=== PATIENT | female | born 1950 | race Caucasian/White ===

== ENCOUNTER → 2017-04-10 | Outpatient (CLI) | payer OTHER ==
[~2017-04-10] MED LIST: ASPEC81 PO; CHOL2000 PO; CYAN10005 SL; LEVO100T7 PO; LEVO88TA PO; LPT40 PO; SIMV10TA5 PO; SULF800T23 PO
[2017-04-10 09:56] LABS: ALT/SGPT 48 U/L (12-78); BLOOD UREA NITROGEN 16 mg/dl (7-18); BUN/CREATININE RATIO 17.2 (10-20); CARBON DIOXIDE 27 mmol/L (21-32); CHLORIDE 107 mmol/L (98-107); CHOLESTEROL 176 mg/dl (0-200); CREATININE 0.94 mg/dl (0.60-1.20); GLUCOSE 85 mg/dl (70-99); POTASSIUM 4.1 mmol/L (3.5-5.1); SODIUM 142 mmol/L (136-145); TRIGLYCERIDES 168 mg/dl (0-150); VERY LOW DENSITY LIPOPROT CALC 34 mg/dl
[2017-04-10 10:07] LABS: ALKALINE PHOSPHATASE 125 U/L (45-117); AST/SGOT 18 U/L (15-37); CHOLESTEROL/HDL RATIO 2.8; HDL CHOLESTEROL 63 mg/dl; LDL CHOLESTEROL CALCULATED 79 mg/dl
== END | disposition home or self-care (01) ==
LOC: C.LAB1850 06:53
PROVIDERS: ATTEND Internal Medicine
DX: E78.5 Hyperlipidemia, unspecified (principal); E03.9 Hypothyroidism, unspecified; E53.8 Deficiency of other specified B group vitamins

== ENCOUNTER → 2017-05-02 | Outpatient (CLI) | payer OTHER ==
[2017-05-02 15:44] LABS: BASO % 0.3 %; BASO ABS # 0.02 K/uL (0-0.2); COMPLETE YES; EOS % 0.9 %; IG% 0.1 %; LYMPH ABS # 2.51 K/uL (1.2-3.4); MEAN CELL VOLUME 88.3 fL (80-100); MEAN CORPUSCULAR HEMOGLOBIN 30.8 pg (25-34); MEAN CORPUSCULAR HGB CONC 34.9 g/dl (32-36); MEAN PLATELET VOLUME 11.9 fL (7.4-10.4); MONO % 6.1 %; NEUT % 60.6 %; PLATELET COUNT 180 K/uL (130-400); RED BLOOD COUNT 5.32 M/uL (4.2-5.4); WHITE BLOOD COUNT 7.85 K/uL (4.8-10.8)
[2017-05-02 16:07] LABS: PROTHROMBIN TIME (PATIENT) 10.7 SECONDS (9.0-12.0)
== END | disposition home or self-care (01) ==
LOC: C.LAB1850 14:17
PROVIDERS: ATTEND Internal Medicine Pulmonary Disease
DX: E03.9 Hypothyroidism, unspecified (principal); H52.10 Myopia, unspecified eye

== ENCOUNTER 2017-05-05 21:44 | Emergency (ER) | payer OTHER ==
[~2017-05-05] VITALS: Ht 177.8 cm; Wt 119.8 kg
[~2017-05-05 21:44] MED LIST changes: -ASPEC81 PO; -CHOL2000 PO; -CYAN10005 SL; -LEVO100T7 PO; -LPT40 PO; -SULF800T23 PO
[2017-05-05 21:46] VITALS: TEMP 36.9; Ht 177.8 cm; Wt 119.8 kg
[2017-05-05 22:01] VITALS: O2SAT 96
[2017-05-05] MEDS ORDERED: ASPIRIN 81 MG CHEW PO STA (22:07)
[2017-05-05 22:13] LABS: BASO % 0.2 %; BASO ABS # 0.01 K/uL (0-0.2); COMPLETE YES; EOS % 1.2 %; HEMATOCRIT 44.6 % (37-47); IG% 0.2 %; LYMPH % 39.8 %; MEAN CELL VOLUME 87.6 fL (80-100); MEAN CORPUSCULAR HEMOGLOBIN 29.9 pg (25-34); MEAN CORPUSCULAR HGB CONC 34.1 g/dl (32-36); MEAN PLATELET VOLUME 11.5 fL (7.4-10.4); NEUT % 49.6 %; PLATELET COUNT 166 K/uL (130-400); RED BLOOD COUNT 5.09 M/uL (4.2-5.4); WHITE BLOOD COUNT 6.03 K/uL (4.8-10.8)
[2017-05-05] MEDS ORDERED: NITROGLYCERIN OINT 2% 1GM PACKET EXT ONE (22:15)
[2017-05-05 22:25] LABS: PROTHROMBIN TIME (PATIENT) 10.8 SECONDS (9.0-12.0)
[2017-05-05] MEDS ORDERED: CYAN10005 SL (22:28)
[2017-05-05] MEDS ORDERED: CHOL2000 PO (22:28)
[2017-05-05] MEDS ORDERED: LEVO100T7 PO (22:28)
[2017-05-05 22:31] LABS: ALT/SGPT 43 U/L (12-78); BLOOD UREA NITROGEN 22 mg/dl (7-18); BUN/CREATININE RATIO 21.6 (10-20); CALCIUM 9.5 mg/dl (8.5-10.1); CARBON DIOXIDE 25 mmol/L (21-32); CHLORIDE 107 mmol/L (98-107); GLUCOSE 93 mg/dl (70-99); POTASSIUM 4.3 mmol/L (3.5-5.1); SODIUM 140 mmol/L (136-145)
[2017-05-05 22:36] LABS: ALKALINE PHOSPHATASE 108 U/L (45-117); AST/SGOT 23 U/L (15-37)
--- NOTE | 2017-05-05 22:45 | DIAGNOSTIC IMAGING REPORT ---
CHEST ONE VIEW PORTABLE HISTORY: Atypical CHEST PAIN COMPARISON: Chest 02/22/2016. FINDINGS: The lungs are clear. Cardiac silhouette is normal in size. No pleural effusions. No pneumothorax. IMPRESSION: No acute process. Electronically signed by: Marino Montes M.D. 05/05/2017 10:43 PM Dictated Date/Time: 05/05/2017 10:42 PM
--- NOTE | 2017-05-06 00:23 | Medical Consult ---
Consultation Date of Consultation: May 06, 2017. Attending Physician: Reason for Consultation: Chest Pain History of Present Illness This is a pleasant 67 year old female who presents with a brief episode of chest pain this morning. She reports this morning that she was in her apartment doing laundry. She had climbed a flight of stairs with a large load of laundry and afterwards was sitting down drinking tea when we felt a sudden onset heaviness 1/10 across he anterior chest and both shoulders. The pain did not radiate to her. The heaviness subsided completed after 10 seconds and never returned thereafter. She denies palpitations, diaphoresis, dizziness, shortness of breath, orthopnea or swelling. She came to the ED on the advice of her sisters who are nurses. She denies any recent URI symptoms or other illness. She does have hyperlipidemia and a history of smoking 20 pack years but quit in 1997. She did have a stress echo last year, which was negative for ischemia up to 82% max predicted heart rate. She does note some ongoing issues with reduced exercise tolerance and is scheduled for a bronchoscopy this coming Monday. Family History FH: digestive disorders Heart disease Mother had [place] at 55 Father had CABGx 5 Social History Ex-smoker 20 pack year No EtOH consumption Lives at home with , does all ADLs independently Smoking Status: Former Smoker Marital Status: Housing Status: lives with family Occupation Status: unemployed Allergies Coded Allergies: Apricot (Unverified Allergy, Unknown, [facility], 05/05/17) Home Medications Reported Home Medications Medications Dose Route/Sig Max Daily Dose Days Date Category Vitamin D3 (Cholecalciferol) 2,000 Unit Cap 1 Cap PO DAILY 05/05/17 Reported Vitamin B-12 (Cyanocobalamin) 1,000 Mcg Tab 1,000 Mcg SL DAILY 05/05/17 Reported Levothyroxine Sodium 100 Mcg Tab 1 Tab PO DAILY 05/05/17 Reported Zocor (Simvastatin) 10 Mg Tab 10 Mg PO QPM 05/02/14 Reported Review of Systems A 10 point review of systems was negative unless stated above. Constitutional: No chills Physical Exam Date Time Temp Pulse Resp B/P (MAP) Pulse Ox O2 Delivery O2 Flow Rate FiO2 05/05/17 23:19 81 17 93 05/05/17 23:04 82 18 95 05/05/17 23:00 135/85 05/05/17 22:59 116/82 05/05/17 22:49 81 17 94 05/05/17 22:44 84 20 94 05/05/17 22:31 158/88 05/05/17 22:29 78 16 95 05/05/17 22:14 83 21 94 05/05/17 22:06 161/114 05/05/17 22:01 96 Room Air 05/05/17 22:01 Room Air 05/05/17 21:59 82 17 93 05/05/17 21:59 79 05/05/17 21:56 139/104 05/05/17 21:53 Room Air 05/05/17 21:46 36.9 84 20 171/109 93 Room Air General Appearance: WD/WN, no apparent distress, + obese Head: normocephalic, atraumatic Eyes: normal inspection, EOMI ENT: hearing grossly normal, pharynx normal Neck: supple, no adenopathy, no JVD Respiratory/Chest: lungs clear, no respiratory distress Cardiovascular: regular rate, rhythm, no gallop, no murmur Abdomen/GI: normal bowel sounds, non tender, soft Back: no CVA tenderness, no muscle spasm Extremities/Musculoskelatal: no calf tenderness, no pedal edema Neurologic/Psych: normal mood/affect, normal reflexes, oriented x 3 Skin: normal color, warm/dry, no rash Lymphatic: no adenopathy Laboratory Results Last 24 Hours Test 05/05/17 22:00 White Blood Count 6.03 K/uL Red Blood Count 5.09 M/uL Hemoglobin 15.2 g/dL Hematocrit 44.6 % Mean Corpuscular Volume 87.6 fL Mean Corpuscular Hemoglobin 29.9 pg Mean Corpuscular Hemoglobin Concent 34.1 g/dl Platelet Count 166 K/uL Mean Platelet Volume 11.5 fL Neutrophils (%) (Auto) 49.6 % Lymphocytes (%) (Auto) 39.8 % Monocytes (%) (Auto) 9.0 % Eosinophils (%) (Auto) 1.2 % Basophils (%) (Auto) 0.2 % Neutrophils # (Auto) 3.00 K/uL Lymphocytes # (Auto) 2.40 K/uL Monocytes # (Auto) 0.54 K/uL Eosinophils # (Auto) 0.07 K/uL Basophils # (Auto) 0.01 K/uL RDW Standard Deviation 43.4 fL RDW Coefficient of Variation 13.5 % Immature Granulocyte % (Auto) 0.2 % Immature Granulocyte # (Auto) 0.01 K/uL Prothrombin Time 10.8 SECONDS Prothromb Time International Ratio 1.0 Activated Partial Thromboplast Time 25.1 SECONDS Partial Thromboplastin Ratio 1.0 Sodium Level 140 mmol/L Potassium Level 4.3 mmol/L Chloride Level 107 mmol/L Carbon Dioxide Level 25 mmol/L Anion Gap 8.0 mmol/L Blood Urea Nitrogen 22 mg/dl Creatinine 1.00 mg/dl Est Creatinine Clear Calc Drug Dose 78.8 ml/min Estimated GFR () 68.5 Estimated GFR (Non- 59.1 BUN/Creatinine Ratio 21.6 Random Glucose 93 mg/dl Calcium Level 9.5 mg/dl Total Bilirubin 0.7 mg/dl Direct Bilirubin 0.2 mg/dl Aspartate Amino Transf (AST/SGOT) 23 U/L Alanine Aminotransferase (ALT/SGPT) 43 U/L Alkaline Phosphatase 108 U/L Total Creatine Kinase 115 U/L Creatine Kinase MB < 0.5 ng/ml Creatine Kinase MB Ratio Troponin I < 0.015 ng/ml Total Protein 7.5 gm/dl Albumin 3.9 gm/dl Lipase 335 U/L Assessment & Plan 67 year old female with a very brief episode of chest heaviness. The patient certainly has risk factors for CAD but there are objective findings suggesting that her current pain is non-cardiac - The pattern of her chest pain is non-anginal in quality. - Troponin x 1 were negative in the ED, which was approximately 10 hours after symptomatic episode. - EKG in the ED was completely normal with no acute ST or T wave changes. - Had negative stress echocardiogram 1 year ago. Our recommendations are as follows: - Repeat troponin now (lezama 12 hours from onset of symptoms) If negative, patient can be discharged home Follow-up with PCP Return for scheduled bronchoscopy on Monday Resident Physician Supervision Note: I was present with Dr. Ovalles during the history and exam. I discussed the case with the resident and agree with the findings and plan as documented in the note. Any exceptions or clarifications are listed here: 67 y/o F Hx chronic SOB - no etiology as yet - scheduled for bronchoscopy . Pt normally has exertional dyspnea but developed transient chest heaviness this AM OE AAO x 3 S1,2 R CTAB NT, ND, BS+ No CCE EKG: NSR - trop negative - neg stress echo 1 yr prior however had not reached max P: As CP had occurred > 12 hours prior, pt will be D/Cd for outpt f/u Instructed to return with recurrence We will obtain an additional trop prior to D/C Above discussed with pt, resident, ER attending Documented By: Camilo Khoury
--- NOTE | 2017-05-06 00:32 | EMERGENCY ROOM VISIT NOTE ---
History Report prepared by Mg: Elidia Alonzo Under the Supervision of: Dr. Denzel Rangel M.D. First contact with patient: 21:58 Chief Complaint: CHEST PAIN Stated Complaint: HEAVYNESS IN CHEST, LEFT SHOULDER PAIN Nursing Triage Summary: Has been having shortness of breath for weeks, has been seeing marine electronics repairer, scheduled for bronchoscopy Monday. Today at 1200 started having chest pressure going into both shoulders, self-resolved within 10 seconds. Dyspnea is exertional, dizziness is positional. History of Present Illness The patient is a 67 year old female who presents to the Emergency Room with complaints of intermittent chest pain starting ten hours ago. The patient states that she has bronchoscopy scheduled in three days to determine why she has been having breathing issues. She states that she came to the ED now because her sisters are nurses and were arguing with her about coming. She states that she finally decided to come when one of her sisters stated they wouldn't perform the procedure without a cardiac work up. She states that the pain radiated into her shoulders and into her neck on both sides. She states that sometimes she could count to 10 and it would go away, while other times it was present for longer. She states that the pain was a heaviness in her chest. She notes that she tried to rest with no relief. The patient notes a family history of CAD and that they did not present with traditional symptoms. The patient denies recent travel, swelling in her legs, and taking Aspirin. She currently rates her pain as a 1/10 in severity. The patient notes a long history of shortness of breath and she is currently followed by pulmonology. She notes no new symptoms regarding the dyspnea. Pt denies LOC, headache, fevers, chills, diaphoresis, visual changes, tearing pain radiating to the back , personal history or family history of aneurysm or pulmonary embolism, uncontrolled hypertension, leg swelling, coagulation abnormalities, prolonged travel, recent surgery or immobilization, nausea, vomiting, abdominal pain, melena, hematochezia, urinary symptoms, numbness, weakness, lymphadenopathy, rash, or other complaints. Source of History: patient Onset: ten hours ago Position: chest Symptom Intensity: 1/10 Quality: other (heaviness) Timing: intermittent Associated Symptoms: + neck pain (radiated from chest) Note: The patient complains of the pain radiating into her shoulders. The patient denies recent travel, swelling in her legs, and taking Aspirin. Review of Systems See HPI for pertinent positives and negatives. A total of ten systems were reviewed and were otherwise negative. Family History FH: digestive disorders Heart disease Social History Smoking Status: Former Smoker Marital Status: Housing Status: lives with family Occupation Status: unemployed Current/Historical Medications Scheduled Cholecalciferol (Vitamin D3), 1 CAP PO DAILY Cyanocobalamin (Vitamin B-12), 1,000 MCG SL DAILY Levothyroxine Sodium (Levothyroxine Sodium), 1 TAB PO DAILY Simvastatin (Zocor), 10 MG PO QPM Allergies Coded Allergies: Apricot (Unverified Allergy, Unknown, N, 05/05/17) Physical Exam Vital Signs Date Time Temp Pulse Resp B/P (MAP) Pulse Ox O2 Delivery O2 Flow Rate FiO2 05/05/17 23:19 81 17 93 05/05/17 23:04 82 18 95 05/05/17 23:00 135/85 05/05/17 22:59 116/82 05/05/17 22:49 81 17 94 05/05/17 22:44 84 20 94 05/05/17 22:31 158/88 05/05/17 22:29 78 16 95 05/05/17 22:14 83 21 94 05/05/17 22:06 161/114 05/05/17 22:01 96 Room Air 05/05/17 22:01 Room Air 05/05/17 21:59 82 17 93 05/05/17 21:59 79 05/05/17 21:56 139/104 05/05/17 21:53 Room Air 05/05/17 21:46 36.9 84 20 171/109 93 Room Air Physical Exam GENERAL: Awake, alert, well-appearing, in no distress HENT: Normocephalic, atraumatic. Oropharynx unremarkable. EYES: Normal conjunctiva. Sclera non-icteric. NECK: Supple. No nuchal rigidity. FROM. No JVD. RESPIRATORY: Clear to auscultation. CARDIAC: Regular rate, normal rhythm. Extremities warm and well perfused. Pulses equal. ABDOMEN: Soft, non-distended. No tenderness to palpation. No rebound or guarding. No masses. RECTAL: Deferred. MUSCULOSKELETAL: Chest examination reveals no tenderness. The back is symmetrical on inspection without obvious abnormality. There is no CVA tenderness to palpation. No joint edema. LOWER EXTREMITIES: Calves are equal size bilaterally and non-tender. No edema. No discoloration. NEURO: Normal sensorium. No sensory or motor deficits noted. SKIN: No rash or jaundice noted. Medical Decision & Procedures ER Provider Diagnostic Interpretation: Radiology results as stated below per my review and radiologist interpretation: CHEST ONE VIEW PORTABLE HISTORY: Atypical CHEST PAIN COMPARISON: Chest 02/22/2016. FINDINGS: The lungs are clear. Cardiac silhouette is normal in size. No pleural effusions. No pneumothorax. IMPRESSION: No acute process. Electronically signed by: Marino Montes M.D. 05/05/2017 10:43 PM Dictated Date/Time: 05/05/2017 10:42 PM Laboratory Results 05/05/17 22:00 Red Blood Count 5.09, Mean Corpuscular Volume 87.6, Mean Corpuscular Hemoglobin 29.9, Mean Corpuscular Hemoglobin Concent 34.1, Mean Platelet Volume 11.5, Neutrophils (%) (Auto) 49.6, Lymphocytes (%) (Auto) 39.8, Monocytes (%) (Auto) 9.0, Eosinophils (%) (Auto) 1.2, Basophils (%) (Auto) 0.2, Neutrophils # (Auto) 3.00, Lymphocytes # (Auto) 2.40, Monocytes # (Auto) 0.54, Eosinophils # (Auto) 0.07, Basophils # (Auto) 0.01 05/05/17 22:00 Test 05/05/17 22:00 05/06/17 00:14 White Blood Count 6.03 K/uL (4.8-10.8) Red Blood Count 5.09 M/uL (4.2-5.4) Hemoglobin 15.2 g/dL (12.0-16.0) Hematocrit 44.6 % (37-47) Mean Corpuscular Volume 87.6 fL (80-100) Mean Corpuscular Hemoglobin 29.9 pg (25-34) Mean Corpuscular Hemoglobin Concent 34.1 g/dl (32-36) Platelet Count 166 K/uL (130-400) Mean Platelet Volume 11.5 fL (7.4-10.4) Neutrophils (%) (Auto) 49.6 % Lymphocytes (%) (Auto) 39.8 % Monocytes (%) (Auto) 9.0 % Eosinophils (%) (Auto) 1.2 % Basophils (%) (Auto) 0.2 % Neutrophils # (Auto) 3.00 K/uL (1.4-6.5) Lymphocytes # (Auto) 2.40 K/uL (1.2-3.4) Monocytes # (Auto) 0.54 K/uL (0.11-0.59) Eosinophils # (Auto) 0.07 K/uL (0-0.5) Basophils # (Auto) 0.01 K/uL (0-0.2) RDW Standard Deviation 43.4 fL (36.4-46.3) RDW Coefficient of Variation 13.5 % (11.5-14.5) Immature Granulocyte % (Auto) 0.2 % Immature Granulocyte # (Auto) 0.01 K/uL (0.00-0.02) Prothrombin Time 10.8 SECONDS (9.0-12.0) Prothromb Time International Ratio 1.0 (0.9-1.1) Activated Partial Thromboplast Time 25.1 SECONDS (21.0-31.0) Partial Thromboplastin Ratio 1.0 Anion Gap 8.0 mmol/L (3-11) Est Creatinine Clear Calc Drug Dose 78.8 ml/min Estimated GFR () 68.5 Estimated GFR (Non- 59.1 BUN/Creatinine Ratio 21.6 (10-20) Calcium Level 9.5 mg/dl (8.5-10.1) Total Bilirubin 0.7 mg/dl (0.2-1) Direct Bilirubin 0.2 mg/dl (0-0.2) Aspartate Amino Transf (AST/SGOT) 23 U/L (15-37) Alanine Aminotransferase (ALT/SGPT) 43 U/L (12-78) Alkaline Phosphatase 108 U/L (45-117) Total Creatine Kinase 115 U/L (26-192) Creatine Kinase MB < 0.5 ng/ml (0.5-3.6) Creatine Kinase MB Ratio (0-3.0) Total Protein 7.5 gm/dl (6.4-8.2) Albumin 3.9 gm/dl (3.4-5.0) Lipase 335 U/L (73-393) Laboratory results reviewed by me Medications Administered Medications (Trade) Dose Ordered Sig/Vini Route Start Time Stop Time Status Last Admin Dose Admin Aspirin (Aspirin Chew) 324 mg NOW STAT PO 05/05/17 22:07 05/05/17 22:09 DC 05/05/17 22:18 324 MG Nitroglycerin (Nitroglycerin 2% Oint) 1 inch NOW ONCE EXT 05/05/17 22:15 05/05/17 22:16 DC 05/05/17 22:19 1 INCH ECG Indication: chest pain Rate (beats per minute): 77 Rhythm: normal sinus Findings: no acute ischemic change, no ectopy ED Course 2158: The patient was evaluated in room B12. A complete history and physical exam was performed. 2206: Ordered Aspirin 324 mg PO. 2214: Ordered Nitroglycerin 1 inch EXT. 2257: I reevaluated the patient and she is pain free and feels well. 2314: Discussed the patient's case with Dr. Khoury. The patient will be evaluated for further treatment and disposition. Medical Decision Triage Nursing notes reviewed. The patient's presentation and history were concerning for chest pain. Etiologies such as cardiac ischemia, aortic dissection, pulmonary embolism, pneumonia, pneumothorax, musculoskeletal, infections, gastrointestinal, as well as others were entertained. The patient has intermittent symptoms that started many hours ago. ECG was nonischemic. Her CBC, chemistry panel, LFT's and cardiac markers are negative. The patient was given aspirin. X-ray imaging did not reveal any abnormalities. On reassessment she was doing well. I discussed further evaluation and management in the hospital. Consultation was made with internal medicine. The patient was evaluated in the Emergency Room for further treatment. Consults Time Called: [phone] Consulting Physician: Dr. Khoury Returned Call: [phone] Discussed the patient's case with Dr. Khoury. The patient will be evaluated for further treatment and disposition. Impression Primary Impression: Substernal chest pain Scribe Attestation The scribe's documentation has been prepared under my direction and personally reviewed by me in its entirety. I confirm that the note above accurately reflects all work, treatment, procedures, and medical decision making performed by me. Departure Information Dispostion Being Evaluated By Hospitalist RV. Gardner MD (PCP) Patient Instructions [facility]
[2017-05-06 01:29] VITALS: PULSE 77; O2SAT 94
[2017-05-06 01:30] VITALS: BP 105/68
--- NOTE | 2017-05-08 08:07 | History & Physical Bridge Note ---
H&P Re-Evaluation Bridge Note: I have examined the patient, reviewed the History & Physical and in the interval since the performance of the History & Physical I have noted the following changes of clinical significance: No changes noted
--- NOTE | 2017-05-08 08:08 | Procedure Note ---
Pre-Mod Sedation Assessment General Date of Moderate Sedation: May 08, 2017. Pre-Sedation Airway Assessment Smoking Status: Former Smoker Mallampati Classification: Class II ASA Classification: Class II Procedure Planning Contraindications-for Mod Sed: None Yes Notes The planned sedation has been discussed with the patient and consent obtained. I have identified the patient, determined the appropriateness of sedation and have assessed the patient immediately prior to the procedure. All medicine(s) and interventions are by my order.
--- NOTE | 2017-05-08 08:15 | Discharge Instructions ---
Discharge Instructions Date of Service May 08, 2017. Admission Reason for Admission: Heavyness In Chest, Left Shoulder Pain Discharge Discharge Diagnosis / Problem: Chronic Astmatic Bronchitis Discharge Goals Goal(s): Decrease discomfort, Improve disease control, Learn about illness, Therapeutic intervention Activity Recommendations Activity Limitations: resume your previous activity Lifting Limitations: none Exercise/Sports Limitations: none May Resume Sexual Activity: when tolerated Shower/Bathe: no limitations Driving or Machine Use: resume 1 day after discharge None . Instructions / Follow-Up Instructions / Follow-Up ACTIVITY RECOMMENDATIONS: * Rest today, resume normal activity tomorrow. * Do not drive today. SPECIAL CARE INSTRUCTIONS: * Call your physician if you experience any chest or shoulder pain, fever, coughing, spitting up blood (more than 2 teaspoons) or excessive shortness of breath. * Remove dressing from IV site (where needle was placed into the vein) after 2 hours. Apply a warm, moist compress to site if irritation occurs. Call physician if site becomes red or painful to touch. FOLLOW UP VISIT: * Keep any scheduled doctor appointments. Current Hospital Diet ACTIVITY RECOMMENDATIONS: * Rest today, resume normal activity tomorrow. * Do not drive today. SPECIAL CARE INSTRUCTIONS: * Call your physician if you experience any chest or shoulder pain, fever, coughing, spitting up blood (more than 2 teaspoons) or excessive shortness of breath. * Remove dressing from IV site (where needle was placed into the vein) after 2 hours. Apply a warm, moist compress to site if irritation occurs. Call physician if site becomes red or painful to touch. FOLLOW UP VISIT: * Keep any scheduled doctor appointments.Patient's current hospital diet: Discharge Diet Recommended Diet: Regular Diet Pending Studies Studies pending at discharge: no Laboratory Results Lipid Panel Test 04/10/17 06:56 Range/Units Triglycerides Level 168 H 0-150 mg/dl Cholesterol Level 176 0-200 mg/dl HDL Cholesterol 63 mg/dl Cholesterol/HDL Ratio 2.8 LDL Cholesterol, Calculated 79 mg/dl Work Instructions Return To Work: 1 day Lifting Limitations: none Medical Emergencies . Who to Call and When: Medical Emergencies: If at any time you feel your situation is an emergency, please call 911 immediately. . Non-Emergent Contact Non-Emergency issues call your: [employer] Call Non-Emergent contact if: temperature is above 100.5, your pain is not controlled . ACTIVITY RECOMMENDATIONS: * Rest today, resume normal activity tomorrow. * Do not drive today. SPECIAL CARE INSTRUCTIONS: * Call your physician if you experience any chest or shoulder pain, fever, coughing, spitting up blood (more than 2 teaspoons) or excessive shortness of breath. * Remove dressing from IV site (where needle was placed into the vein) after 2 hours. Apply a warm, moist compress to site if irritation occurs. Call physician if site becomes red or painful to touch. FOLLOW UP VISIT: * Keep any scheduled doctor appointments.. "Provider Documentation" section prepared by Leobardo Grewal. . VTE Core Measure Inpt VTE Proph given/why not?: Treatment not indicated [place] Drug Monitoring Program Drug Monitoring Findings: None
[2017-05-26] MEDS ORDERED: SULF800T23 PO (07:00)
[2017-05-26] MEDS ORDERED: ASPEC81 PO (12:12)
[2017-05-26] MEDS ORDERED: LPT40 PO (12:12)
== END 2017-05-06 01:46 | disposition home or self-care (01) ==
LOC: C.EDB 21:46
DX: R07.2 Precordial pain (principal); M25.512 Pain in left shoulder; Z87.891 Personal history of nicotine dependence; R06.02 Shortness of breath

== ENCOUNTER 2017-05-08 08:12 | Day surgery (SDC) | payer OTHER ==
[2017-05-08] VITALS (14 sets, daily range): BP systolic 115–149; BP diastolic 75–102; PULSE 62–95; TEMP 36.4–36.6; O2SAT 89–99; Ht 177.8 cm; Wt 119.5 kg
[~2017-05-08] VITALS: Ht 177.8 cm; Wt 119.5 kg
[~2017-05-08 08:12] MED LIST changes: +CHOL2000 PO; +CYAN10005 SL; +LEVO100T7 PO; -LEVO88TA PO
[2017-05-08] MEDS ORDERED: LEVALBUTEROL 1.25MG/3ML NEB INH ONE (08:13)
[2017-05-08] MEDS ORDERED: FENTANYL CITRATE 100 MCG 2 ML CARP IV ONE (08:13)
[2017-05-08] MEDS ORDERED: MIDAZOLAM HCL 5 MG/ML 1 ML VIAL IV ONE ×2 (08:13→11:45)
[2017-05-08] MEDS ORDERED: NURSING VERBAL MED ORDER ONE ×2 (09:30→11:15)
[2017-05-08] MEDS ORDERED: DEXTROSE 5% 1000ML 1,000 ML IV SCH (09:30)
[2017-05-08] MEDS ORDERED: FENTANYL CITRATE INJ 50 MCG/1 ML 2 ML VIAL IV ONE (11:45)
--- NOTE | 2017-05-08 12:32 | Discharge Instructions ---
Discharge Instructions Date of Service May 08, 2017. Admission Reason for Admission: Short Of Breath Discharge Discharge Diagnosis / Problem: Chronic Asthmatic Bronchitis Discharge Goals Goal(s): Decrease discomfort, Improve disease control, Therapeutic intervention Activity Recommendations Activity Limitations: resume your previous activity Lifting Limitations: none Exercise/Sports Limitations: none May Resume Sexual Activity: when tolerated Shower/Bathe: no limitations Driving or Machine Use: resume 1 day after discharge None . Instructions / Follow-Up Instructions / Follow-Up ACTIVITY RECOMMENDATIONS: * Rest today, resume normal activity tomorrow. * Do not drive today. SPECIAL CARE INSTRUCTIONS: * Call your physician if you experience any chest or shoulder pain, fever, coughing, spitting up blood (more than 2 teaspoons) or excessive shortness of breath. * Remove dressing from IV site (where needle was placed into the vein) after 2 hours. Apply a warm, moist compress to site if irritation occurs. Call physician if site becomes red or painful to touch. FOLLOW UP VISIT: * Keep any scheduled doctor appointments. Current Hospital Diet Patient's current hospital diet: Discharge Diet Recommended Diet: Regular Diet Fluid Restriction: None Pending Studies Studies pending at discharge: no Laboratory Results Lipid Panel Test 04/10/17 06:56 Range/Units Triglycerides Level 168 H 0-150 mg/dl Cholesterol Level 176 0-200 mg/dl HDL Cholesterol 63 mg/dl Cholesterol/HDL Ratio 2.8 LDL Cholesterol, Calculated 79 mg/dl Medical Emergencies . Who to Call and When: Medical Emergencies: If at any time you feel your situation is an emergency, please call 911 immediately. . Non-Emergent Contact Non-Emergency issues call your: Medical Device . . "Provider Documentation" section prepared by Leobardo Grewal. . VTE Core Measure Inpt VTE Proph given/why not?: Treatment not indicated
--- NOTE | 2017-05-08 13:49 | OPERATIVE REPORT ---
DATE OF OPERATION: 05/08/2017 PROCEDURE: Fiberoptic bronchoscopy with bronchoalveolar lavage. INDICATIONS: Chest heaviness/chronic cough refractory to outpatient therapy. ANESTHESIA PREOPERATIVELY: None. ANESTHESIA DURING PROCEDURE: 5 mg IV Versed, 100 mcg IV fentanyl, 20 mL 2% Xylocaine spray above and below the cords, 4% viscous Xylocaine intranasally. DESCRIPTION OF PROCEDURE: Fiberoptic bronchoscope was inserted into the right naris with minimal difficulty and passed to the level of the true vocal cords. Cords appeared to approximate normally with phonation without evidence of lesions or paralysis. The scope was then introduced in the trachea and right and left tracheobronchial tree. The luis was sharp. The right main stem bronchus was found to be free of endobronchial lesions. The right upper lobe, the apical posterior and anterior segments, bronchus intermedius, right middle lobe, medial and lateral segments, and all basilar segments of right lower lobe were found to be free of endobronchial lesions. A small amount of mucopurulent secretion was lavaged from right lower lobe until clear and sent for appropriate studies. Left tracheobronchial tree was explored and no endobronchial lesion was seen. Left upper lobe consisting of the apical-posterior and anterior segments were free of endobronchial lesions, but severe, almost erosive degree of inflammatory mucosal change was seen that was somewhat hemorrhagic and showed small "blistering" excoriated mucosa. This area was lavaged with normosol and the aspirate sent for appropriate studies. Brushings for cytologic preparation x3 were obtained and 3 endobronchial biopsies as well with only small amount of bleeding encountered which abated spontaneously. The lingular subdivision was free of endobronchial lesions as were all basilar segments of left lower lobe. No fluoroscopy was utilized. The procedure was terminated. The patient was given a nebulizer treatment with Xopenex 1.25 mg and transferred to the medical treatment unit hemodynamically stable with no signs of respiratory compromise. We will await microbiological and cytologic examination of the bronchial washings and brushings as well as histopathologic diagnosis. I attest to the content of the Intraoperative Record and any orders documented therein. Any exception s are noted below.
[2017-05-26] MEDS ORDERED: SULF800T23 PO (07:00)
[2017-05-26] MEDS ORDERED: ASPEC81 PO (12:12)
[2017-05-26] MEDS ORDERED: LPT40 PO (12:12)
[2017-06-01 13:36] LABS: HERPES SIMPLEX CULT SOURCE OTHER-LUL WASH/BRUSH; HERPES SIMPLEX VIRUS CULT NOT ISOLATED (NOT ISOLATED)
== END 2017-05-08 13:15 | disposition home or self-care (01) ==
LOC: C.ACU 08:12
PROVIDERS: ATTEND Internal Medicine Pulmonary Disease
DX: R09.89 Other specified symptoms and signs involving the circulatory and respiratory systems (principal); R05 Cough; E78.5 Hyperlipidemia, unspecified; E03.9 Hypothyroidism, unspecified; E53.8 Deficiency of other specified B group vitamins; H52.10 Myopia, unspecified eye; M76.30 Iliotibial band syndrome, unspecified leg; Z87.891 Personal history of nicotine dependence; Z79.899 Other long term (current) drug therapy

== ENCOUNTER → 2017-05-26 | Day surgery (SDC) | payer OTHER ==
[~2017-05-26] VITALS: Ht 177.8 cm; Wt 118.0 kg
[~2017-05-26] MED LIST changes: +ADENOSINE IV SOLN 3 MG/ML 20 ML VIAL ONE; +ASPEC81 PO; +FENTANYL CITRATE INJ 50 MCG/1 ML 2 ML VIAL ONE; +HEPARIN SOD (PORCINE) 1000 UNIT/ML 10 ML VIAL ONE; +LPT40 PO; +MIDAZOLAM HCL 1 MG/ML 2ML VIAL ONE; +NITROGLYCERIN/D5W 100MCG/ML 20ML SYR ONE; +NiCARDipine HCL INJ 2.5 MG/ML 10 ML AMP ONE; +SULF800T23 PO
[2017-05-26 07:17] VITALS: BP 155/85; PULSE 78; TEMP 36.6; O2SAT 96; Ht 177.8 cm; Wt 118.0 kg
[2017-05-26 07:58] LABS: BLOOD UREA NITROGEN 12 mg/dl (7-18); BUN/CREATININE RATIO 11.3 (10-20); CALCIUM 8.8 mg/dl (8.5-10.1); CARBON DIOXIDE 22 mmol/L (21-32); CHLORIDE 110 mmol/L (98-107); GLUCOSE 106 mg/dl (70-99); SODIUM 139 mmol/L (136-145)
--- NOTE | 2017-05-26 08:10 | Procedure Note ---
Pre-Mod Sedation Assessment General Date of Moderate Sedation: May 26, 2017. Vital Signs: Vital Signs Past 12 Hours Date Time Temp Pulse Resp B/P (MAP) Pulse Ox O2 Delivery O2 Flow Rate FiO2 05/26/17 07:17 36.6 78 16 155/85 96 Room Air Review Cardiovascular: regular rate, rhythm, no edema Abdomen: normal bowel sounds, non tender Lungs: chest non-tender, lungs clear Pre-Sedation Airway Assessment Oral Cavity: WNL Able to Visualize Vocal Cords: No Short Thick Neck: No Hx of Sleep Apnea: No Smoking Status: Former Smoker Mallampati Classification: Class III ASA Classification: Class III Procedure Planning Contraindications-for Mod Sed: None Yes Notes The planned sedation has been discussed with the patient and consent obtained. I have identified the patient, determined the appropriateness of sedation and have assessed the patient immediately prior to the procedure. All medicine(s) and interventions are by my order.
[2017-05-26 09:45] LABS: ISTAT ARTERIAL BLOOD GAS HCO3 22 meq/L (19-24); ISTAT ARTERIAL BLOOD GAS PCO2 38 mmHg (35-46); ISTAT ARTERIAL BLOOD GAS PO2 34 mmHg (80-95); ISTAT ARTERIAL BLOOD GAS pH 7.38 (7.35-7.45); ISTAT CARBON DIOXIDE 24 mEq/l (24-31)
[2017-05-26 09:46] LABS: ISTAT ARTERIAL BLOOD GAS HCO3 21 meq/L (19-24); ISTAT ARTERIAL BLOOD GAS PCO2 35 mmHg (35-46); ISTAT ARTERIAL BLOOD GAS PO2 78 mmHg (80-95); ISTAT ARTERIAL BLOOD GAS pH 7.38 (7.35-7.45); ISTAT CARBON DIOXIDE 22 mEq/l (24-31)
--- NOTE | 2017-05-26 10:27 | Cardiac Catheterization ---
Procedure Note Procedure Date May 26, 2017. Pre-Procedure Diagnosis Angina AUC Score 7 Post-Procedure Diagnosis Moderate CAD, Normal Intracardiac Pressures Procedure(s) Performed Coronary Angiography, Left Heart Cath, Right Heart Cath Thermodynamics Engineer Sea Primary Care Nurse(s) Jackelinet Estimated Blood Loss 14 Medication(s) Fentanyl, Heparin, Nitroglycerin, Versed, Lidocaine 1% Summary of Findings Indication: Typical angina/CAD risk factors Access: 5Fr Right Radial Artery; 6Fr Slender Right Antecubital vein Catheters: Lykens, JL3.5; RRAD guide Findings: LM - Angiographically normal LAD - Moderate caliber vessel with 2 sequential 30-40% mid segment lesions; tapers as reaches apex Circumflex - Angiographically normal, gives off large bifurcating OM1 RCA - Dominant, shepards crook take-off, 40-50% focal stenosis in mid segment, diffuse distal luminal irregularities in PDA/distal PLB RA 1 RV 18/2 PA 15/4 (10) PCW 4 LV 122/1 AV mean gradient - 10.7 mmHg, calculated ISRAEL 1.6-1.7 PaSat 65% AoSat 95% Camille CO/CI 4.4/1.9 Thermo CO/CI 4.8/2.1 iFR mid RCA 0.98 FFR mid RCA 0.91 Arterial Closure: TR Band Summary: 1. Mild to moderate non-obstructive coronary artery disease - 40-50% mid RCA (non-flow limiting by FFR 0.91) - Sequential 30-40% lesions in mid LAD 2. Normal intracardiac filling pressures. Preserved cardiac output. No significant pulmonary hypertension. 3. Mild aortic stenosis (MG 10, ISRAEL 1.6) Recommendations: Continue ASCVD risk factor modification. Start high-intensity statin, low dose aspirin. Continued follow-up with pulmonary for evaluation of dyspnea on exertion. Hemodynamics Rest Ao: 112/70/89 Final Ao: 110/59/82 LV: 122/1 Recommendations Medical therapy and/or Counseling Specimens None Radiation Exposure (mGy) 2339 Contrast (mls) 100 Visi Fluids (cc crystalloids) 500 NS Drains None Anesthesia Moderate Procedural Complication(s) None Disposition PCU ACC Data Cardiac Status Clinical evaluation leading to the procedure CAD Presntation: Unstable angina Anginal Classification: CCS III Heart Failure: No, NYHA Class: CCS I Cardiogenic Shock w/in 24Hrs: No Cardiac Arrest w/in 24Hrs: No Imaging studies past 6 months: Yes Stress studies past 6 months: No Coronary Anatomy Dominant: Right Left Main (% Stenosis): Normal LAD (% Stenosis): Mid (30-40) Circumflex (% Stenosis): Normal RCA (% Stenosis): Mid (40-50) Diagnostic Physician's Name: Osvaldo Osei MD Status: Elective Closure Device Percutaneous Entry Location: Radial Closure Device: Radial Band Intraprocedure Events Significant Dissection: No Perforation: No
--- NOTE | 2017-05-26 12:15 | Discharge Instructions ---
Discharge Instructions Procedure Procedure Date: May 26, 2017. Reason for Visit: Sob, Rt And Left Side * To Do*. Discharge Discharge Date: May 26, 2017. Discharge Diagnosis: Nonobstructive coronary artery disease Last Recorded Wt (Kilograms): 118 Anesthesia Post Anesthesia Instructions: If you have had IV Sedation: * Do not drive today. * Resume driving when tire spotter permits. * Do not make important decisions or sign legal documents today. * Call surgeon for: 1. Temperature elevations greater than 101 degrees F. 2. Uncontrollable pain. 3. Excessive bleeding. 4. Persistent nausea and vomiting. 5. Medication intolerance (nausea, vomiting or rash). * For nausea and vomiting use only clear liquids such as: tea, soda, bouillon until nausea subsides, then gradually increase diet as tolerated. * If you have any concerns or questions, call your surgeon's office. If physician is unavailable and it is an emergency, call 911 or go to the nearest emergency room. Instructions Activity Recommendations: limitations as noted below Recommended Home Diet: low cholesterol Allergies: Coded Allergies: Apricot (Verified Allergy, Mild, fever, lips swell, 05/08/17) NO KNOWN DRUG ALLERGIES (Verified Allergy, Unknown, NONE, 05/08/17) Follow Up Additional Instructions: ACTIVITY RECOMMENDATIONS: It is common to feel weak and fatigue for a few days. * Limit stair usage (2 or 3 trips a day only) for the next 2 days. * Do not lift anything heavier than 10 pounds for the next three days. * Do not engage in vigorous exercise or any sports for the next five days. * You may shower the day after your procedure, but do not immerse the area for three days. Cleanse the site gently with soap and water. SPECIAL CARE INSTRUCTIONS: * You may replace the pressure dressing or band-aid the morning after the procedure. * After your procedure, it is normal to have a small bruise or small lump at the site. Examine your site daily for any change in the bruise or lump, redness, swelling, drainage or numbness. Notify your doctor if any change. BLEEDING: * If there is a small amount of bleeding at the site, lie down and apply firm pressure with a clean cloth for ten minutes. When the bleeding stops, lie quietly keeping the procedure limb straight for six hours. Notify your doctor as soon as possible. * If the bleeding does not stop after ten minutes or if there is a large amount of bleeding or spurting, call 911 immediately. Continue to lie down and hold firm pressure until help arrives. SKIN IRRITATION: * You may experience some redness and/or swelling in the area where radiation was administered. If any skin irritation occurs, please contact your family physician. FOLLOW UP VISIT: Keep any scheduled doctor appointments. Follow-up with: Dr. Grewal from Pulmonary Dr. Osei in 6 months. [facility] Recommendations: Call your doctor if: * Temperature above 101 degrees * Pain not relieved by pain medicine ordered * There is increased drainage or redness from any incision * You have any unanswered questions or concerns. Your Doctors Instructions noted above were prepared by provider Josr Osei. Patient Signature Section: Patient Instructions Signature Page Magalis Harrison Patient (or Guardian) Signature/Date: I have read and understand the instructions given to me by my caregivers. Caregiver/RN/Doctor Signature/Date: The above-named patient and/or guardian has received patient instructions on this date. + Original Patient Signature Page (only) stays with chart. Please make copy for patient.
[2017-05-26 12:30] VITALS: BP 125/70; PULSE 66; O2SAT 98
== END | disposition home or self-care (01) ==
LOC: C.CATH 06:54
PROVIDERS: ATTEND Internal Medicine Interventional Cardiology
DX: I25.10 Atherosclerotic heart disease of native coronary artery without angina pectoris (principal); I35.0 Nonrheumatic aortic (valve) stenosis; R06.02 Shortness of breath; R07.9 Chest pain, unspecified; E78.5 Hyperlipidemia, unspecified; E03.9 Hypothyroidism, unspecified; Z90.49 Acquired absence of other specified parts of digestive tract; Z82.49 Family history of ischemic heart disease and other diseases of the circulatory system; Z83.3 Family history of diabetes mellitus; Z80.1 Family history of malignant neoplasm of trachea, bronchus and lung; Z83.1 Family history of other infectious and parasitic diseases

== ENCOUNTER → 2017-06-13 | Outpatient (CLI) | payer OTHER ==
[~2017-06-13] MED LIST changes: -ADENOSINE IV SOLN 3 MG/ML 20 ML VIAL ONE; -FENTANYL CITRATE INJ 50 MCG/1 ML 2 ML VIAL ONE; -HEPARIN SOD (PORCINE) 1000 UNIT/ML 10 ML VIAL ONE; -MIDAZOLAM HCL 1 MG/ML 2ML VIAL ONE; -NITROGLYCERIN/D5W 100MCG/ML 20ML SYR ONE; -NiCARDipine HCL INJ 2.5 MG/ML 10 ML AMP ONE; -SIMV10TA5 PO
== END | disposition home or self-care (01) ==
LOC: C.MAMM 07:42
PROVIDERS: ATTEND Internal Medicine
DX: Z13.820 Encounter for screening for osteoporosis (principal); M85.851 Other specified disorders of bone density and structure, right thigh

== ENCOUNTER → 2017-06-16 | Outpatient (CLI) | payer OTHER ==
[~2017-06-16] MED LIST changes: +OPTIRAY 320 IV PRN
--- NOTE | 2017-06-16 09:05 | DIAGNOSTIC IMAGING REPORT ---
CHEST CT WITH CONTRAST CT DOSE: 557.81 mGy.cm HISTORY: Short of breath. R07.9 Exertional chest [id number] TECHNIQUE: Multiaxial CT images of the chest were performed following the intravenous administration of contrast. A dose lowering technique was utilized adhering to the principles of ALARA. COMPARISON: Chest CT 02/22/2016. FINDINGS: The lungs are clear. The mediastinal vascular structures are within normal limits. No mediastinal or hilar lymphadenopathy. No pleural effusion or pneumothorax. Limited views of the upper abdomen demonstrate a normal liver and spleen. Mildly enlarged thyroid gland, unchanged. Tiny hiatus hernia is also unchanged. Cholecystectomy. IMPRESSION: No significant abnormality identified within the chest. Electronically signed by: Marino Montes M.D. 06/16/2017 9:03 AM Dictated Date/Time: 06/16/2017 8:55 AM
[2017-06-22 18:18] LABS: DIPTHERIA ANTITOXID 0.07 IU/mL; IGE RECEPTOR AB(ANTI-IgE IgG)* 36 ng/mL (<168); IMMUNOGLOBULIN D TC 541X <7 mg/L (<179); PNEUMOCOCCAL IGG TYPE 1 0.7; PNEUMOCOCCAL IGG TYPE 12(12F <0.3; PNEUMOCOCCAL IGG TYPE 14 <0.3; PNEUMOCOCCAL IGG TYPE 23(23F <0.3; PNEUMOCOCCAL IGG TYPE 26 (6B <0.3; PNEUMOCOCCAL IGG TYPE 3 0.8; PNEUMOCOCCAL IGG TYPE 4 <0.3; PNEUMOCOCCAL IGG TYPE 5 0.8; PNEUMOCOCCAL IGG TYPE 51 (7F 0.4; PNEUMOCOCCAL IGG TYPE 56(18C 0.7; PNEUMOCOCCAL IGG TYPE 68 (9V 0.4; PNEUMOCOCCAL IGG TYPE 8 0.8; PNEUMOCOCCAL IGG TYPE 9 (9N) 0.3; TETANUS ANTIBODY TC 50922P 1.28 IU/mL (>0.15)
== END | disposition home or self-care (01) ==
LOC: C.CTS 08:19
PROVIDERS: ATTEND Internal Medicine Pulmonary Disease
DX: R07.9 Chest pain, unspecified (principal)

== ENCOUNTER → 2017-06-20 | Outpatient (CLI) | payer OTHER ==
[~2017-06-20] MED LIST changes: -OPTIRAY 320 IV PRN
[2017-06-20 17:57] LABS: MAGNESIUM 2.1 mg/dl (1.8-2.4)
[2017-06-22 16:59] LABS: ALBUMIN 3.8 G/DL (3.8-4.8); CYTOMEGALOVIRUS IGG AB >10.00 U/ML; EBV EARLY ANTIGEN AB <9.00 U/ML; EPSTEIN BARR VIR CAPSID IGG >750.00 U/ML; GAMMA GLOBULIN 0.8 G/DL (0.8-1.7); LEAD BLOOD 1 MCG/DL (0-9); TOTAL PROTEIN 6.3 G/DL (6.2-8.3)
== END | disposition home or self-care (01) ==
LOC: C.LAB1850 15:58
PROVIDERS: ATTEND Physician Assistant
DX: R20.8 Other disturbances of skin sensation (principal); R53.83 Other fatigue; R42 Dizziness and giddiness

== ENCOUNTER → 2017-07-03 | Outpatient (CLI) | payer OTHER ==
--- NOTE | 2017-07-03 07:26 | DIAGNOSTIC IMAGING REPORT ---
CHEST 2 VIEWS ROUTINE CLINICAL HISTORY: 67 years-old Female presenting with R06.02 Shortness of breath on [id number]. TECHNIQUE: PA and lateral views of the chest were obtained. COMPARISON: 05/05/2017. FINDINGS: Cardiomediastinal silhouette normal. Lungs and pleural spaces clear. Osseous structures normal. Upper abdomen normal. IMPRESSION: 1. No acute cardiopulmonary disease. Electronically signed by: Panda Long M.D. 07/03/2017 7:25 AM Dictated Date/Time: 07/03/2017 7:24 AM
--- NOTE | 2017-07-03 08:34 | DIAGNOSTIC IMAGING REPORT ---
LUNG IMAGING VQ CLINICAL HISTORY: 67 years-old Female presenting with R06.02 Shortness of breath on [id number] Lightheaded. TECHNIQUE: Immediately following the inhalation of 33 mCi of technetium 99 M DTPA for the ventilation scan and the intravenous administration of 5.6 mCi of technetium 99 M MAA for the perfusion scan, anterior, oblique, lateral, and posterior views of the chest were obtained. Modified PIOPED II criteria were utilized for assessment. COMPARISON: CT from 06/16/2017. FINDINGS: No mismatched defects are identified on this examination. Perfusion and ventilation to both lungs is preserved. Accumulation of the ventilation activity within the stomach, consistent with swallowed radiotracer. Reference: Modified PIOPED II criteria Normal: No perfusion defects. Very low likelihood ratio: Nonsegmental, perfusion defect < chest x-ray lesion, 1-3 small segmental defects, solitary triple matched defect (< or = 1 segment) in mid or upper lung, stripe sign, solitary large pleural effusion, > or = to 2 matched defects with regionally normal chest x-ray. High likelihood ratio: > or = 2 large mismatch segmental defects. Nondiagnostic: All other findings. IMPRESSION: Normal. Electronically signed by: Panda Long M.D. 07/03/2017 8:33 AM Dictated Date/Time: 07/03/2017 8:25 AM
== END | disposition home or self-care (01) ==
LOC: C.NUCL 06:55
PROVIDERS: ATTEND Physician Assistant
DX: R42 Dizziness and giddiness (principal); R53.83 Other fatigue; R06.02 Shortness of breath

== ENCOUNTER → 2017-07-04 | Outpatient (CLI) | payer OTHER ==
--- NOTE | 2017-07-05 07:49 | PAP/PSG TECHNICIAN REPORT ---
[facility] Tube Closing Machine Operator Polysomnogram Report Study name: None Report date: 07/05/2017 Study date: 07/04/2017 Referring Physician: Jacinta Salinas PA-C, KATHY Name: NANO PRUITT I Interpreting Physician: Denzel Delgadillo M.D. Date of : 1950 Tube Closing Machine Operator: Kaila Enciso, PSGT. Sex: Female Age: 67 StudyType: PSG Weight: 262 lbs Height: 67 years, Height 5' 10" BMI: 37.59 Medications: SM Vit.D 1000 unit, Levothyroxine 100 , Vit-B 12 1000 mcg. Patient History 67 yr. old female presents to the sleep lab for a diagnostic sleep study. Patient states that she is short of breath and light headed X 1 year. R/O HAYDEE. Parameters Monitored NPSG: E1-M2, E2-M1, Fp1-M2, Fp2-M1, F3-M2, F4-M2, F4-M1, C3-M2, C4-M2, C4-M1, O1-M2, O2-M2, O2-M1, T3-M2, T4-M1, P3-M2, P4-M1, CHIN1, CHIN2, HR, EKG, Legs, PFLOW, SNOR, FLOW, CFLOW, Tidal Volume, THOR, ABDO, SpO2, PLTH, CPRESS, ETCO2 Wave, ETCO2, pH Sleep Architecture Sleep Stages Time at Lights Off 9:15:44 PM STAGES Time (min.) TST (%) Time at Lights On 5:20:44 AM Wake 29.5 -- Total Recording Time (TRT) 485.00 min. N1 8.0 2 Total Sleep Period (TSP) 458.0 min. N2 327.0 72 Total Sleep Time (TST) 455.5min. N3 0.0 0 Awake Time 29.5 min. REM 120.5 26 Wake after Sleep Onset 11.0 min. Sleep Efficiency (SE) 94 % Sleep Onset Latency (TERRY) 18.5 min. Number of Stage 1 Shifts None Awakenings 2 Stage Changes 17 Number of REM periods 5 REM 120.5 26 REM Latency 145.5 min. NREM 335.0 74 Body Position Analysis Supine Right Left Side Prone Vertical Total Sleep Time (min.) 1.4 279.9 174.2 454.12 0.0 1.0 Total Sleep Time (%) 0% 61% 38% 100 0% N/A% Total Sleep Time REM (min.) 0.0 85.0 35.5 None 0.0 0.0 Total Sleep Time NREM (min.) 1.4 194.9 138.7 None 0.0 0.0 Intermittent Wake (min.) 0.0 10.1 18.4 None 0.0 1.0 Total Sleep Period (%) 0% None None None None None Arousals Myoclonus (PLM) * Events Count Index Events Count Index Spontaneous 21 3 Events Awake (PLMW) 0 0.0 Respiratory 12 1.6 Events Asleep w/ Arousal (PLMA) 11 1.4 PLM 11 1 Events Asleep w/o Arousal (PLMS) 109 14.4 Snoring 19 3 Total Asleep 120 15.8 Total 62 8 Total 120 15 Respiratory Analysis * CA OA MA CH H RERA Total Count 0 8 1 0 92 9 100 Index 0.0 1.1 0.1 0 12.1 1 14.4 Mean Duration 0.0 19.1 15.9 0.00 22.0 12.7 21.1 Longest Duration 0.0 34.9 15.9 0.00 15.9 19.0 57.5 Respiratory Event Summary Total Supine ~Supine Right Left Prone REM NREM Apneas Count 9 0 9 7 2 N/A 6 3 Index 1.2 0 1 1.5 0.7 N/A 3 1 Hypopneas (4% Desat) Count 92 1 91 64 27 N/A 59 33 Index 12.1 43.4 12 13.7 9.3 N/A 29.4 5.9 Apneas & All Hypopneas Count 100 1 99 70 29 N/A 65 35 Index 13.2 43 13 15 10 N/A 32.4 6.3 Respiratory Events (Elevator Technician+All Hyp+RERA) Count 100 1 108 79 29 N/A 65 35 Index 14.4 43 14 16.9 10.0 N/A 35.4 6.8 Respiratory Related Arousal Count 12 1 12 9 3 N/A 8 4 Index 1.6 0 2 2 1 N/A 4 1 Snoring Analysis Supine Right Left Prone REM NREM Total Snore duration 120.2 min Snores count 0 2,799 1,226 N/A 862 3,163 4,025 Snore mean duration 1.8 Sec Snores index 0 600 422 N/A 429.2 566.5 530.2 TST with snoring (%) 26.4% Desaturation Event Summary: Minimum %SpO2 Event Count Mean/Min/Max Duration(sec.) Desaturation Index % Time In Bed > 90 81 30.0 / 11.0 / 57.8 50.3 20.0 86 - 90 75 27.0 / 6.0 / 57.8 11.9 78.2 81 - 85 2 14.6 / 12.3 / 17.0 13.5 1.8 76 - 80 0 N/A 0.0 0.0 71 - 75 0 N/A 0.0 0.0 66 - 70 0 N/A 0.0 0.0 61 - 65 0 N/A 0.0 0.0 56 - 60 0 N/A 0.0 0.0 51 - 55 0 N/A 0.0 0.0 < 50 0 N/A 0.0 0.0 Total REM NREM Awake <50% 0.0 min. 0.0 min. 0.0 min. 0.0 min. 51 - 60% 0.0 min. 0.0 min. 0.0 min. 0.0 min. 61 - 70% 0.0 min. 0.0 min. 0.0 min. 0.0 min. 71 - 80% 0.1 min. 0.1 min. 0.0 min. 0.0 min. 81 - 90% 387.0 min. 76.2 min. 290.8 min. 20.0 min. 91 - 100% 96.7 min. 44.2 min. 43.7 min. 8.8 min. Average 89 90 89 90 Minimum SpO2 79 79 83 87 Desaturation Event Index 12.6 27.9 8.2 0.0 # Desat. Events below 89% 89 45 44 N/A Time(%) with Saturation below 89% 20.4 5.7 13.8 0.9 Time(min.) with Saturation below 89% 98.6 27.7 66.7 4.2 Time (mins) REM (mins) NREM (mins) % of TST SpO2 Below 90% 101 56 N45 51.6 SpO2 Below 88% 42 0 0 8 Heart Rate Analysis Min (bpm) Max (bpm) Average (bpm) Awake 59 127 70 NREM 58 78 66 REM 58 77 65 Overall 58 78 66 Supplemental O2 Values Minimum O2 level: None Value Start Time End Time Tube Closing Machine Operator Comments PSG Study MS. Pruitt slept in the right, left, and supine positions. No cardiac arrhythmia or PLM's noted. No bruxism noted. Snoring was noted and scored as a 4 on a scale of 1 through 5. (0=no snoring, 5=snoring loud enough to be heard through a closed door or down the au way) Ms. Pruitt awoke to use the restroom zero times during the night. Ms. Pruitt stated, I did sleep as well as I do when I am in my own bed. The final report will be interpreted and signed by a sleep physician. The completed physician report will then be placed in the patient medical record. Therapy (cm H2O) 0 TIB (min.) 485.0 TST (min.) 455.5 Sleep Onset (min.) 18.5 REM Onset From Sleep (min.) 145.5 Sleep Efficiency % 94 Wakefulness (%) 6 Wakefulness (min.) 29.5 NREM 1 (%) 2 NREM 1 (min.) 8.0 NREM 2 (%) 72 NREM 2 (min.) 327.0 NREM 3 (%) 0 NREM 3 (min.) 0.0 REM (%) 26 REM (min.) 120.5 # Arousals 62 Arousal Index 8 # Snore 4,025 Snore Index 530.2 AHI 13.2 AHI Supine 43 AHI Non-Supine 13 NREM AHI 6.3 REM AHI 32.4 RDI 14.4 # Obstructive Apnea 8 # Central Apnea 0 # Mixed Apnea 1 # Hypopneas 92 RERAs 9 Total Respiratory Events 110 Time Below SpO2 89% (min.) 94.4 Mean NREM SpO2 (%) 89 Mean REM SpO2 (%) 90 Mean Sleep SpO2 (%) 89 Min NREM SpO2 (%) 83 Min REM SpO2 (%) 79 Position Supine (min.) 1.4 Position Non-supine (min.) 454.1 LM Index Sleep 15.8 LM Index NREM 18.8 LM Index REM 7.5 Mean Heart Rate (bpm) 66 Min Heart Rate (bpm) 58
--- NOTE | 2017-07-05 11:26 | POLYSOMNOGRAPH REPORT ---
CLINICAL DATA: A 67-year-old female with a BMI of 37.6 referred by declan Potts PA-C, and Dr. Grewal for symptoms of shortness of breath, lightheadedness, snoring, and fatigue. SLEEP ARCHITECTURE: Total sleep period was 458 minutes. Total sleep time was 455.5 minutes divided between 335 minutes of non-REM sleep and 120.5 minutes of REM sleep. Sleep onset latency was 18.5 minutes. REM latency was 145.5 minutes. Sleep efficiency was 94%. Wake after sleep onset was 11 minutes. Sleep consisted of stage N1 2%, stage N2 72%, and REM 26%. AROUSAL DATA: Sixty two arousals were recorded for an index of 8 per hour. PERIODIC LIMB MOVEMENTS DATA: 120 limb movements during sleep were noted for an index of 15.8 per hour with arousal index of 1.4 per hour. RESPIRATORY DATA: Mild sleep apnea was documented. The AHI was 13.2. There were 8 obstructive and 1 mixed apneic episode. The longest duration of apnea was 34.9 seconds. There were 92 hypopneic episodes with a mean duration of 22 seconds. OXIMETRY DATA: Nocturnal hypoxemia was seen. Oxygen aleksandra of 79% during REM. The mean saturation was 89%. Time below 88% was 42 minutes. ELECTROCARDIOGRAM: Heart rates ranged from 58-78 beats per minute. No arrhythmias were noted. CORPORATE EVENTS DIRECTOR'S COMMENTS: The patient slept in the right, left, and supine positions. Snoring was severe, rated 4 on a scale of 1-5. IMPRESSION: Mild sleep apnea/hypopnea with an apnea-hypopnea index of 13.2 with nocturnal hypoxemia with an oxygen aleksandra of 79%. RECOMMENDATIONS: The patient may benefit from weight loss, use of an oral appliance, use of auto CPAP, or a repeat sleep study with CPAP. Clinical correlation is needed. [facility]
== END | disposition home or self-care (01) ==
LOC: C.NEUR 20:00
PROVIDERS: ATTEND Physician Assistant
DX: J42 Unspecified chronic bronchitis (principal); R07.9 Chest pain, unspecified; G47.30 Sleep apnea, unspecified; G47.36 Sleep related hypoventilation in conditions classified elsewhere

== ENCOUNTER → 2017-07-14 | Outpatient (CLI) | payer OTHER ==
[~2017-07-14] MED LIST changes: +OPTIRAY 320 IV PRN
--- NOTE | 2017-07-14 15:22 | DIAGNOSTIC IMAGING REPORT ---
CT OF THE HEAD WITH AND WITHOUT CONTRAST CLINICAL HISTORY: Fatigue. Lightheadedness. COMPARISON STUDY: No previous studies for comparison. TECHNIQUE: Axial images of the head were obtained before and after intravenous administration of 93 cc Optiray 320 IV. FINDINGS: No acute intracranial hemorrhage, midline shift or mass affect is present. Brain volume is normal. Ventricular system is normal. The basilar cisterns are patent. There are no extra-axial collections. Smith-white differentiation is preserved. There are are no findings to suggest acute dural sinus thrombosis or acute territorial infarct. Note is made of a 1 cm partially calcified extra-axial lesion overlying the left frontal lobe. This may demonstrate mild enhancement. There are no additional intracranial masses. Visualized portions of the sinuses and mastoid air cells are clear. IMPRESSION: 1. No acute intracranial findings. 2. 1 cm partially calcified extra-axial lesion overlying the left frontal lobe which may reflect a meningioma or exostosis. This is of doubtful significance. 3. No suspicious intracranial masses. Electronically signed by: Maykel Saldaña M.D. 07/14/2017 3:21 PM Dictated Date/Time: 07/14/2017 3:15 PM
== END | disposition home or self-care (01) ==
LOC: C.CTS 14:45
PROVIDERS: ATTEND Physician Assistant
DX: R42 Dizziness and giddiness (principal); R53.83 Other fatigue

== ENCOUNTER → 2017-09-05 | Outpatient (CLI) | payer OTHER ==
[~2017-09-05] MED LIST changes: -OPTIRAY 320 IV PRN
[2017-09-05 12:36] LABS: BLOOD UREA NITROGEN 14 mg/dl (7-18); CREATININE 0.78 mg/dl (0.60-1.20)
== END | disposition home or self-care (01) ==
LOC: C.LAB1850 09:48
PROVIDERS: ATTEND Psychiatry & Neurology Neurology
DX: Z00.00 Encounter for general adult medical examination without abnormal findings (principal); D32.9 Benign neoplasm of meninges, unspecified; R42 Dizziness and giddiness

== ENCOUNTER → 2017-09-11 | Outpatient (CLI) | payer OTHER ==
[~2017-09-11] MED LIST changes: +GADAVIST IV PRN
--- NOTE | 2017-09-11 10:55 | DIAGNOSTIC IMAGING REPORT ---
BRAIN COMBO CLINICAL HISTORY: MENINGIOMA nodule COMPARISON STUDY: CT 07/14/2017 TECHNIQUE: Utilizing a 1.5 Silvia magnet and dedicated coil, multiplanar, multiecho imaging of the brain was performed pre and postcontrast administration. IV administration of 8.5 mL of Gadavist contrast was uneventful. FINDINGS: Diffusion-weighted images show no evidence for an acute ischemic process. 5. Mild chronic small vessel change with several foci of increased signal within the periventricular deep white matter regions. Ventricular system is midline. Extra-axial bony exostosis at the site of previous described 1 cm meningioma. The superior left parietal convexity, however is a 7 mm enhancing meningioma. Signal characteristics otherwise are unremarkable. There is no significant mass effect. Sella and parasellar regions are unremarkable. Internal auditory canals are symmetric. IMPRESSION: 1. 7 mm enhancing nodule left parietal convexity consistent with a small meningioma. 2. Previously described nodular density anteriorly appears to represent a benign bony exostosis. 3. Study is otherwise negative. The above report was generated using voice recognition software. It may contain grammatical, syntax or spelling errors. Electronically signed by: Julio Curtis M.D. 09/11/2017 10:54 AM Dictated Date/Time: 09/11/2017 10:50 AM
--- NOTE | 2017-09-11 11:17 | DIAGNOSTIC IMAGING REPORT ---
CAROTID DOPPLER NECK ART HISTORY: Mental status change mild plaque formation bilaterally. COMPARISON: None. TECHNIQUE: Real-time, grayscale, and color Doppler sonography of the carotid arteries was performed. Imaging reviewed in the transverse and longitudinal planes. All measurements were calculated based on NASCET criteria. FINDINGS: Antegrade flow is seen in the bilateral vertebral arteries. The brachial pressures are hemodynamically similar. Mild plaque formation bilaterally The peak systolic velocity within the right ICA is 65. The right systolic ratio is 0.9. The peak systolic velocity within the left ICA is 58. The left systolic ratio is 0.8. IMPRESSION: No hemodynamically significant stenosis seen within the carotid arteries. Minimal/mild plaque dimension bilaterally The above report was generated using voice recognition software. It may contain grammatical, syntax or spelling errors. Electronically signed by: Julio Curtis M.D. 09/11/2017 11:15 AM Dictated Date/Time: 09/11/2017 11:13 AM
== END | disposition home or self-care (01) ==
LOC: C.MRIBC 09:27
PROVIDERS: ATTEND Psychiatry & Neurology Neurology
DX: R42 Dizziness and giddiness (principal); D32.9 Benign neoplasm of meninges, unspecified

== ENCOUNTER → 2017-09-14 | Outpatient (CLI) | payer OTHER ==
[~2017-09-14] MED LIST changes: -GADAVIST IV PRN
[2017-09-14 13:28] LABS: BLOOD UREA NITROGEN 15 mg/dl (7-18); CARBON DIOXIDE 28 mmol/L (21-32); CHLORIDE 106 mmol/L (98-107); CREATININE 0.85 mg/dl (0.60-1.20); GLUCOSE 87 mg/dl (70-99); POTASSIUM 3.7 mmol/L (3.5-5.1); SODIUM 140 mmol/L (136-145)
== END | disposition home or self-care (01) ==
LOC: C.LAB1850 11:47
PROVIDERS: ATTEND Nurse Practitioner Adult Health
DX: R03.0 Elevated blood-pressure reading, without diagnosis of hypertension (principal)